=== PATIENT | male | born 1970 | race Caucasian/White ===

== ENCOUNTER 2017-09-18 03:29 | Emergency (ER) | payer BC ==
[~2017-09-18] VITALS: Ht 175.3 cm; Wt 93.9 kg
[~2017-09-18 03:29] MED LIST: FLEXERIL10 MG PO; PERCOCET 5/31 TABLET PO; ULTRAM50 MG PO; VICODIN 5-3001 EACH PO
[2017-09-18] MEDS ORDERED: ERYTHROMYC1 APPLICAT BOTH EYES (04:16)
[2017-09-18] MEDS ORDERED: TOBREX5 ML BOTH EYES (04:16)
[2017-09-18] MEDS ORDERED: TYLENOL WITH C1 EACH PO (04:16)
[2017-09-18 04:37] VITALS: BP 123/73
== END 2017-09-18 04:37 | disposition home or self-care (01) ==
LOC: EME 03:29
DX: H16.133 Photokeratitis, bilateral (principal); W89.8XXA Exposure to other man-made visible and ultraviolet light, initial encounter; Z88.0 Allergy status to penicillin
CPT/HCPCS: 99281; 99284